=== PATIENT | male | born 1990 | race Caucasian/White ===

== ENCOUNTER 2017-10-20 08:45 | Emergency (ER) | payer OTHER ==
[~2017-10-20] VITALS: Ht 177.8 cm; Wt 136.1 kg
[2017-10-20] MEDS ORDERED: PREVACID15 MG PO (08:54)
[2017-10-20 09:12] LABS: ABSOLUTE BASOPHILS 0.2 thou/uL (0.0-0.2); ABSOLUTE EOSINOPHILS 0.6 thou/uL (0.0-0.7); ABSOLUTE LYMPHOCYTES 3.3 thou/uL (0.8-5.3); ABSOLUTE MONOCYTES 1.1 thou/uL (0.0-1.2); ABSOLUTE NEUTROPHILS 9.2 thou/uL (1.6-8.1); BASOPHILS 1.2 %; EOSINOPHILS 4.5 %; HEMATOCRIT 43.5 % (42.0-52.0); HEMOGLOBIN 14.9 gm/dL (14.0-18.0); MCH 29.3 pg (26.0-34.0); MCHC 34.4 g/dL (28.0-37.0); MCV 85.3 fL (80.0-100.0); MONOCYTES 7.7 %; MPV 7.1 fl. (7.2-11.1); NUCLEATED RBCS 0 /100WBC; PLATELET COUNT* 395 thou/uL (150-400); POLYS 63.6 %; RDW-CV 12.4 % (10.5-14.5); WBC 14.5 thou/uL (4.0-11.0)
[2017-10-20 09:34] LABS: ANION GAP 11 mmol/L (7-16); BUN 14 mg/dL (7-18); CALCIUM 8.4 mg/dL (8.5-10.1); CHLORIDE 100 mmol/L (98-107); CO2 27 mmol/L (21-32); CREATININE 0.7 mg/dL (0.6-1.3); GLUCOSE 122 mg/dL (70-99); POTASSIUM 3.4 mmol/L (3.5-5.1); SODIUM 138 mmol/L (136-145)
[2017-10-20 09:39] LABS: ALKALINE PHOSPHATASE 60 U/L (46-116); LIPASE 93 U/L (73-393); MAGNESIUM 1.8 mg/dL (1.8-2.4); NT-PRO BRAIN NAT PEPTIDE 32 pg/mL (<300); SGOT 32 U/L (15-37); SGPT 68 U/L (30-65); TOTAL BILIRUBIN 0.4 mg/dL (<0.1-1.0); TOTAL PROTEIN 7.7 g/dL (6.4-8.2); TROPONIN-I LEVEL <0.06 ng/mL (<0.06)
[2017-10-20] MEDS ORDERED: ZESTORETIC 20-1 EACH PO (09:45)
[2017-10-20] MEDS ORDERED: ULTRAM 50MG TAB50 MG PO (09:51)
[2017-10-20 09:53] VITALS: BP 140/83
--- NOTE | 2017-10-20 18:44 | EKG ---
[place] [address] ELECTROCARDIOGRAM REPORT Name: ALICE ZHOU [id number] Admission: 10/20/17 Attend Phys: Discharge: 10/20/17 Date of : 88 Report #: [id number] THIS REPORT FOR: //name// [facility] Test Date: 2017-10-20 Test Time: 08:58:28 Pat Name: ALICE ZHOU Department: Room: Gender: M Senior [employer]: UNKNOWN : 1990 Requested By: Arvin Khoury Order Number: [id number] MD: Mauricio Bentley Measurements Intervals [place] Rate: 86 P: 58 UT: 163 QRS: 85 QRSD: 99 T: 46 QT: 358 QTc: 429 Interpretive Statements Sinus rhythm Probable left atrial enlargement No previous ECG available for comparison Electronically Signed On 10-20-2017 18:43:51 CDT by Mauricio Bentley [email or web address] <ELECTRONICALLY SIGNED> By: Mauricio Bentley MD, [facility] 10/20/17 [id number] Mauricio Bentley MD, FACC /EPI
== END 2017-10-20 09:53 | disposition home or self-care (01) ==
LOC: M.ERS 08:45
PROVIDERS: Family Medicine
DX: I10 Essential (primary) hypertension (principal); J45.909 Unspecified asthma, uncomplicated; Z91.013 Allergy to seafood